=== PATIENT | female | born 1955 | race Asian ===

== ENCOUNTER 2019-05-15 10:27 | Emergency (ER) | payer MEDICARE ==
[~2019-05-15] VITALS: Ht 162.6 cm; Wt 59.9 kg
--- NOTE | 2019-05-15 10:45 | NUR ---
ED Nurse Note: patient came to er from request from primary phycisian for conplaint of cough with mucus production. patient denies any pain when coughing, has a steady gait and remains on room air saturating at 98%. ER doctor at the bedside assessing patient.
[2019-05-15 10:48] VITALS: BP 135/76
--- NOTE | 2019-05-15 11:00 | Emergency Room Report ---
History of Present Illness General Chief Complaint: Flu Like Symptoms Source: Patient Present Illness HPI 64-year-old female history of hypertension, diabetes, heart disease presenting for cough. Patient has a cough for approximately 1 month. She reports a dry cough. No fevers no chest pain no shortness of breath no nausea no vomiting. Seen by her primary doctor yesterday who referred her to the ER for further work -up. She has no known travel history and no known sick contacts. She denies any pain at this time. Allergies: Coded Allergies: No Known Allergies (Unverified , 05/15/19) Patient History Past Medical History: see triage record Reviewed Nursing Documentation: PMH: Agreed; PSxH: Agreed Nursing Documentation-PMH Past Medical History: No History, Except For Hx Diabetes: Yes Review of Systems All Other Systems: negative except mentioned in HPI Physical Exam Vital Signs Date Time Temp Pulse Resp B/P (MAP) Pulse Ox O2 Delivery O2 Flow Rate FiO2 05/15/19 10:29 98.2 86 16 117/68 (84) 100 Room Air Sp02 EP Interpretation: reviewed, normal General Appearance: well appearing, no apparent distress Head: normocephalic, atraumatic Eyes: bilateral eye PERRL, bilateral eye EOMI ENT: hearing grossly normal, moist mucus membranes Neck: full range of motion, supple Respiratory: lungs clear, normal breath sounds, no rhonchi, no respiratory distress, no retraction, no wheezing Cardiovascular #1: normal peripheral pulses, regular rate, rhythm, no murmur Gastrointestinal: non tender, soft, non-distended, no guarding Neurologic: alert, oriented x3, no focal defects Skin: normal color, warm/dry Medical Decision Making ER Course Differential diagnosis included but not limited to bronchitis, pneumonia, viral syndrome, URI. We did screen for coronavirus however patient has no recent travel history and no known sick contacts and was afebrile on arrival to triage. Patient was no acute distress on exam. I did send influenza, chest x- ray and basic laboratory studies. Influenza was negative. Laboratory studies showed no leukocytosis. Chest x-ray showed no evidence of rate. Was in no acute distress in the ER. Not hypoxic. Suspect most likely bronchitis. Patient to be discharged with continued outpatient follow-up. Laboratory Tests Test 05/15/19 11:00 White Blood Count 4.7 K/UL (4.8-10.8) L Red Blood Count 4.35 M/UL (4.20-5.40) Hemoglobin 14.2 G/DL (12.0-16.0) Hematocrit 41.1 % (37.0-47.0) Mean Corpuscular Volume 95 FL (80-99) Mean Corpuscular Hemoglobin 32.6 PG (27.0-31.0) H Mean Corpuscular Hemoglobin Concent 34.5 G/DL (32.0-36.0) Red Cell Distribution Width 11.5 % (11.6-14.8) L Platelet Count 107 K/UL (150-450) L Mean Platelet Volume 9.7 FL (6.5-10.1) Neutrophils (%) (Auto) 61.0 % (45.0-75.0) Lymphocytes (%) (Auto) 22.1 % (20.0-45.0) Monocytes (%) (Auto) 11.9 % (1.0-10.0) H Eosinophils (%) (Auto) 4.0 % (0.0-3.0) H Basophils (%) (Auto) 1.1 % (0.0-2.0) Sodium Level 132 MMOL/L (136-145) L Potassium Level 4.5 MMOL/L (3.5-5.1) Chloride Level 104 MMOL/L (98-107) Carbon Dioxide Level 26 MMOL/L (21-32) Anion Gap 3 mmol/L (5-15) L Blood Urea Nitrogen 20 mg/dL (7-18) H Creatinine 1.0 MG/DL (0.55-1.30) Estimate Glomerular Filtration Rate 55.5 mL/min (>60) Glucose Level 200 MG/DL (74-106) H Calcium Level 9.4 MG/DL (8.5-10.1) Total Bilirubin 0.4 MG/DL (0.2-1.0) Aspartate Amino Transferase (AST) 45 U/L (15-37) H Alanine Aminotransferase (ALT) 55 U/L (12-78) Alkaline Phosphatase 106 U/L (46-116) Total Protein 6.8 G/DL (6.4-8.2) Albumin 3.6 G/DL (3.4-5.0) Globulin 3.2 g/dL Albumin/Globulin Ratio 1.1 (1.0-2.7) Microbiology Date/Time Source Procedure Growth Status 05/15/19 11:00 Nasal Nares - Final Complete 05/15/19 11:00 Nasal Nares - Final Complete Chest X-Ray Diagnostic Results Chest X-Ray Diagnostic Results : Chest X-Ray Ordered: Yes # of Views/Limited/Complete: 1 View Indication: Other - Cough Interpretation: no consolidation Last Vital Signs Date Time Temp Pulse Resp B/P (MAP) Pulse Ox O2 Delivery O2 Flow Rate FiO2 05/15/19 10:49 91 19 Room Air 05/15/19 10:48 98.4 135/76 98 Disposition: HOME, SELF-CARE Condition: Stable Referrals: NON PHYSICIAN (PCP) Additional Instructions: Patient is instructed to follow-up with her primary care doctor, primary care clinic or [facility] in 1 to 2 days. Patient instructed to return for any worsening symptoms or concerns. Please note that the documentation in this note was used with [employer]ation technology. Pleae be advised that this may lead to erroneous text due to misinterpretation by the dictation software Chris Thompson M.D. May 15, 2019 11:00
[2019-05-15 11:19] LABS: BASOPHILS % (AUTO) 1.1 % (0.0-2.0); HEMATOCRIT 41.1 % (37.0-47.0); HEMOGLOBIN 14.2 G/DL (12.0-16.0); LYMPHOCYTES % (AUTO) 22.1 % (20.0-45.0); MEAN CORPUSCULAR VOLUME 95 FL (80-99); MONOCYTES % (AUTO) 11.9 % (1.0-10.0); PLATELET COUNT 107 K/UL (150-450); RED BLOOD COUNT 4.35 M/UL (4.20-5.40); RED CELL DISTRIBUTION WIDTH 11.5 % (11.6-14.8); WHITE BLOOD COUNT 4.7 K/UL (4.8-10.8)
--- NOTE | 2019-05-15 11:24 | Diagnostic Imaging Report ---
Indication: Dyspnea Comparison: None A single view chest radiograph was obtained. Findings: Sternotomy noted. Heart size is normal. Lungs are clear. There is slight blunting of the left costophrenic angle. Bones are diffusely osteopenic. IMPRESSION: Small left pleural effusion versus pleural thickening. Sternotomy Osteoporosis
[2019-05-15 11:28] LABS: ANION GAP 3 mmol/L (5-15); BLOOD UREA NITROGEN 20 mg/dL (7-18); CALCIUM 9.4 MG/DL (8.5-10.1); CARBON DIOXIDE 26 MMOL/L (21-32); CHLORIDE 104 MMOL/L (98-107); POTASSIUM 4.5 MMOL/L (3.5-5.1); SODIUM 132 MMOL/L (136-145)
[2019-05-15 11:33] LABS: ALANINE AMINOTRANSFERASE 55 U/L (12-78); ALBUMIN 3.6 G/DL (3.4-5.0); ALBUMIN/GLOBULIN RATIO 1.1 (1.0-2.7); ALKALINE PHOSPHATASE 106 U/L (46-116); ASPARTATE AMINO TRANSFERASE 45 U/L (15-37); BILIRUBIN,TOTAL 0.4 MG/DL (0.2-1.0)
[2019-05-15 12:00] VITALS: BP 107/76
--- NOTE | 2019-05-15 12:01 | NUR ---
ED Nurse Note: Patient is resting in bed on room air saturating at 100%. has intermittent cought lasting for 3 seconds, no phlem is noted at this time.
--- NOTE | 2019-05-15 12:17 | NUR ---
HAND-OFF: Report given to Ronnie zavala.
[2019-05-15 13:08] VITALS: BP 128/72
--- NOTE | 2019-05-15 13:10 | NUR ---
ER DISCHARGE NOTE: Patient is cleared to be discharged per ERMD DR GEIGER, pt is aox4, on room air, with stable vital signs. pt was given dc and prescription instructions, pt was able to verbalize understanding, pt id band and iv site removed without complications. pt is able to ambulate with steady gait. pt took all belongings.
== END 2019-05-15 13:08 | disposition home or self-care (01) ==
LOC: EMR 10:44
DX: R05 Cough (principal); E11.9 Type 2 diabetes mellitus without complications; M81.0 Age-related osteoporosis without current pathological fracture; Z98.890 Other specified postprocedural states
CPT/HCPCS: 36415; 71045; 80053; 85025; 86710; 99283